=== PATIENT | male | born 1965 | race Two or more races ===

== ENCOUNTER 2023-05-05 22:46 | Emergency (ER) | payer OTHER ==
[~2023-05-05] VITALS: Ht 175.3 cm; Wt 80.3 kg
[2023-05-06 01:32] LABS: HEMATOCRIT 39.8 % (39.0-48.0); MEAN CELL VOLUME 90.3 fL (80.0-100.00); MEAN CORPUSCULAR HEMOGLOBIN 31.7 pg (27.00-32.0); MEAN CORPUSCULAR HGB CONC 35.1 g/dl (32.0-36.0); PLATELET COUNT 178 K/uL (150-450); RED BLOOD COUNT 4.41 M/uL (4.00-6.00); RED CELL DISTRIBUTION WIDTH 12.6 % (11.5-14.5)
[2023-05-06 01:51] LABS: CALCIUM 8.9 mg/dL (8.5-10.1); CREATININE SERUM 0.94 mg/dL (0.70-1.30); GFR 82.43; POTASSIUM 3.64 mEq/L (3.5-5.1)
[2023-05-06 02:20] LABS: COCAINE NEGATIVE (NEGATIVE); METHADONE NEGATIVE (NEGATIVE); OPIATES NEGATIVE (NEGATIVE); THC ( Cannabinoids) POSITIVE (NEGATIVE)
== END 2023-05-06 08:17 | disposition home or self-care (01) ==
LOC: ER 22:46 → EDBD 22:46 → ER 05-06 00:38
PROVIDERS: General Practice
DX: R00.2 Palpitations (principal); T40.715A Adverse effect of cannabis, initial encounter; Y92.89 Other specified places as the place of occurrence of the external cause